=== PATIENT | male | born 1995 | race Caucasian/White ===

== ENCOUNTER 2016-07-19 12:47 | Emergency (ER) | payer OTHER ==
[~2016-07-19] VITALS: Ht 167.6 cm; Wt 89.8 kg
[~2016-07-19 12:47] MED LIST: ADDERALL 20 MG20 MG PO; XANAX0.5 MG
[2016-07-19] MEDS ORDERED: LORAZEPAM1 M1 PO (14:14)
[2016-07-19] MEDS ORDERED: QUETIAPINE FUMA25 M1 PO (14:15)
[2016-07-19] MEDS ORDERED: VENLAFAXINE H37.5 M3 PO (14:15)
--- NOTE | 2016-07-19 14:28 | ED GI/GU/ABDOMINAL COMPLAINT ---
History of Present Illness General Chief Complaint: General Adult Stated Complaint: BLOODY EMESIS AND STOOL Source: patient Exam Limitations: no limitations Vital Signs & Intake/Output Vital Signs & Intake/Output Vital Signs Date Time Temp Pulse Resp B/P B/P Pulse O2 O2 Flow FiO2 Mean Ox Delivery Rate 07/19 1536 96.0 77 16 141/88 97 Room Air 07/19 1450 100 Room Air 07/19 1252 97.7 100 16 131/91 96 Room Air Allergies Coded Allergies: NO KNOWN ALLERGIES (08/08/11) Reconcile Medications Dextroamphetamine/Amphetamine (Adderall 20 MG Tablet) 20 MG TABLET 1 TAB PO TID ADHD (Reported) Lorazepam 1 MG TABLET 1 TAB PO 5 TIMES A DAY ANXIETY (Reported) Ondansetron (Zofran Odt) 4 MG TAB.RAPDIS 1 TAB SL TID nausea Quetiapine Fumarate 25 MG TABLET 2 TAB PO QPM PRN ANXIETY (Reported) Venlafaxine HCl 37.5 MG TABLET 1 TAB PO TID ADHD (Reported) Triage Note: PT STATES HE HAS HAD BLOOD IN HIS VOMIT ABOUT 1 HOUR AGO. PT STATES HE ALSO HAS BLOOD IN HIS STOOL ON TUESDAY. PT STATES HE DOES HAVE GERD. PT ALSO STATES HE HAS BEEN HAVING DIARRHEA AND THINKS IT MAY BE FROM HIS ADDEROL. Triage Nurses Notes Reviewed? yes Onset: Abrupt Duration: day(s): (3), constant, getting worse Timing: recent history Quality/Severity: moderate, sharpness, severe No Modifying Factors: none HPI: 20-year-old male comes into emergency room with complaints of vomiting. Patient drank a lot of alcohol this past Tuesday. He does not normally drink. Patient became sick the following day with multiple episodes of vomiting. No abdominal pain. No changes in bowel movement. No fever. Patient comes in for further evaluation. (DONNIE ARCHER) Past History Travel History Traveled to [place] past 21 day No Medical History Any Pertinent Medical History? see below for history Gastrointestinal: GERD Psychiatric: anxiety, depression, ADD Surgical History Surgical History: non-contributory Psychosocial History What is your primary language [place] Tobacco Use: Quit >30 days ago ETOH Use: occasional use Illicit Drug Use: denies illicit drug use Family History Hx Contributory? No (DONNIE ARCHER) Review of Systems Review of Systems Constitutional: Reports: no symptoms. EENTM: Reports: no symptoms. Respiratory: Reports: no symptoms. Cardiovascular: Reports: no symptoms. GI: Reports: see HPI. Genitourinary: Reports: no symptoms. Musculoskeletal: Reports: no symptoms. Skin: Reports: no symptoms. Neurological/Psychological: Reports: no symptoms. Hematologic/Endocrine: Reports: no symptoms. Immunologic/Allergic: Reports: no symptoms. All Other Systems: Reviewed and Negative (DONNIE ARCHER) Physical Exam Physical Exam General Appearance: well developed/nourished, alert, awake Head: atraumatic, normal appearance Eyes: Bilateral: normal appearance, EOMI. Ears, Nose, Throat, Mouth: hearing grossly normal, moist mucous membrane Neck: normal inspection, full range of motion Respiratory: normal breath sounds, no respiratory distress Cardiovascular: regular rate/rhythm Gastrointestinal: normal bowel sounds, soft, non-tender Rectal: heme negative stool Back: normal inspection Extremities: normal range of motion Neurologic/Psych: awake, alert, oriented x 3, normal gait, normal mood/affect Skin: intact, normal color Core Measures ACS in differential dx? No Severe Sepsis Present: No Septic Shock Present: No (DONNIE ARCHER) Progress Differential Diagnosis: appendicitis, biliary colic, cholecystitis, diverticulitis, epididymitis, pancreatitis, prostatitis, peptic ulcer, PUD/GERD, perforated viscous, pyelonephritis, ureterolithiasis, urinary retention, UTI/ pyelo Plan of Care: Orders Procedure Date/time Status URINALYSIS 07/19 1416 Complete LIPASE 07/19 1416 Complete COMPREHENSIVE METABOLIC PANEL 07/19 1416 Complete CBC WITHOUT DIFFERENTIAL 07/19 1416 Complete AMYLASE 07/19 1416 Complete Laboratory Tests 07/19/16 1434: Anion Gap 13, Estimated GFR > 60, BUN/Creatinine Ratio 15.6, Glucose 91, Calcium 9.8, Total Bilirubin 0.7, AST 44, ALT 56, Alkaline Phosphatase 80, Total Protein 7.8, Albumin 4.7, Globulin 3.1, Albumin/Globulin Ratio 1.5, Amylase 80, Lipase 85, CBC w Diff NO MAN DIFF REQ, RBC 5.29, MCV 88.5, MCH 30.9, RDW 12.6, MPV 8.1, Gran % 68.7, Lymphocytes % 21.1, Monocytes % 8.1, Eosinophils % 1.5, Basophils % 0.6, Absolute Granulocytes 6.9 H, Absolute Lymphocytes 2.1, Absolute Monocytes 0.8 H, Absolute Eosinophils 0.1, Absolute Basophils 0.1, PUBS MCHC 34.9, Urinalysis LIGHT H, Urine Color YEL, Urine Clarity HAZY H, Urine pH 6.5, Ur Specific [place] 1.020, Urine Protein NEG, Urine Ketones NEG, Urine Nitrite NEG, Urine Bilirubin NEG, Urine Urobilinogen 0.2, Ur Leukocyte Esterase TRACE H, Ur Microscopic SEDIMENT EXAMINED, Urine RBC RARE, Urine WBC 1-3 H, Ur Epithelial Cells RARE, Urine Bacteria FEW H, Granular Casts 1-3 H, Urine Mucus FEW, Micro UA Comment MORE INFO: H, Urine Hemoglobin NEG, Urine Glucose NEG Initial ED EKG: none (DENISHA SAWYER,DONNIE) Departure Departure Disposition: HOME OR SELF CARE Condition: Stable Clinical Impression Primary Impression: Gastritis Secondary Impressions: Lightheadedness Referrals: PATIENT HAS NO PRIMARY CARE DR (PCP/Family) Additional Instructions: Take Zofran ODT as prescribed. Rest. Drink plenty of fluids. Follow-up with primary care doctor. Return if any other concerns. Please go over all results of today's visit with your primary care doctor. Contact your primary care doctor to let them know you were here in the emergency room. There may be nonspecific findings which may not be related to your visit today here in the emergency room but may require further evaluation and chronic monitoring by your primary care doctor. If you had a laceration today the chance of foreign body always remains. You should follow-up with your primary care doctor for recheck in 3-5 days for a wound check. If you had an x-ray done there is a chance that a fracture could have been missed on initial read and you should follow-up with your primary care doctor for repeat x-rays if symptoms persist. If your blood pressure was elevated here in the emergency room please have rechecked by her primary care doctor within the next 48 hours by your primary care doctor. If you were prescribed a narcotic here in the emergency room or any type of controlled substances you're not allowed to drive while taking this medication or operate any type of heavy machinery. Narcotics can make you feel lightheaded dizziness nausea and can cause constipation. You may need to pickling tank operator a stool softener. Thank you for choosing [facility] emergency room. Please return to the emergency room immediately if you have any other concerns worsening of symptoms. Departure Forms: Customer Survey General Discharge Information Prescriptions: Current Visit Scripts Ondansetron (Zofran Odt) 1 TAB SL TID #10 TAB Comments 07/19/2016 4:08:03 PM Patient feels significantly better and clinically looks well. Patient given a prescription for Zofran. Nontoxic-appearing. In no apparent distress. Symptoms most due to patient drinking too much alcohol. He is clinically sober. He has not drink in 3 days. The small amount of blood after vomiting multiple times is likely a Ness-Wells tear. He has a negative guaiac and exam. He has no abdominal pain on exam. (DONNIE ARCHER) PA/GYPSUM BLOCK SETTER Co-Sign Statement Statement: ED Attending supervision documentation- [] I saw and evaluated the patient. I have also reviewed all the pertinent lab results and diagnostic results. I agree with the findings and the plan of care as documented in the PA's/GYPSUM BLOCK SETTER's documentation. [X] I have reviewed the ED Record and agree with the PA's/GYPSUM BLOCK SETTER's documentation. [] Additions or exceptions (if any) to the PAs/GYPSUM BLOCK SETTER's note and plan are summarized below: [] (JCARLOS ESCAMILLA DO)
[2016-07-19 14:44] LABS: ABSOLUTE BASOPHIL COUNT 0.1 /CUMM (0.0-0.2); ABSOLUTE EOSINOPHIL COUNT 0.1 /CUMM (0.0-0.7); ABSOLUTE GRANULOCYTE CT 6.9 /CUMM (1.4-6.5); ABSOLUTE LYMPH COUNT 2.1 /CUMM (1.2-3.4); ABSOLUTE MONOCYTE COUNT 0.8 /CUMM (0.10-0.60); BASOPHIL % 0.6 % (0.0-2.0); EOSINOPHIL % 1.5 % (0-5); GRANULOCYTE % 68.7 % (42.2-75.2); HEMATOCRIT 46.8 % (42-52); MEAN CORPUSCULAR HGB 30.9 PG (27.0-31.0); MEAN CORPUSCULAR HGB CONC 34.9 G/DL (33.0-37.0); MEAN CORPUSCULAR VOLUME 88.5 FL (80.0-94.0); MEAN PLATELET VOLUME 8.1 FL (7.4-10.4); PLATELET COUNT 337 /CUMM (130-400); RBC DISTRIBUTION WIDTH 12.6 % (11.5-14.5); RED BLOOD CELL CT 5.29 /CUMM (4.70-6.10); WHITE BLOOD CELL COUNT 10.1 /CUMM (4.8-10.8)
[2016-07-19 15:36] VITALS: BP 141/88
[2016-07-19] MEDS ORDERED: ZOFRAN ODT4 M1 SL (15:37)
== END 2016-07-19 16:40 ==
LOC: ERH 12:47
PROVIDERS: Physician Assistant Medical
DX: K29.70 Gastritis, unspecified, without bleeding (principal); R42 Dizziness and giddiness
CPT/HCPCS: 81001; 96361; 96374; J2405